=== PATIENT | female | born 1980 | race African-American/Black ===

== ENCOUNTER 2024-09-27 00:20 | Inpatient (IN) | payer OTHER ==
[~2024-09-27] VITALS: Ht 315 cm; Wt 47.2 kg
[2024-09-27 01:50] LABS: BASOPHILS % 0.2 % (0.0-2.0); DIFFERENTIAL COMMENT 0; EOSINOPHILS % 0.1 % (0.0-5.0); HEMATOCRIT. 47.1 % (36.0-48.0); HEMOGLOBIN. 13.5 g/dL (12.0-16.0); LYMPHOCYTES % 10.3 % (20.0-50.0); MEAN CORPUSCULAR HEMOGLOBIN 27.8 pg (28.0-32.0); MEAN CORPUSCULAR HGB CONC 28.6 g/dL (31.0-37.0); MEAN CORPUSCULAR VOLUME 97.1 fL (81.0-99.0); MEAN PLATELET VOLUME 9.1 fl (7.4-10.4); MONOCYTES % 8.9 % (2.0-8.0); NEUTROPHILS % 80.5 % (40.0-76.0); PLATELET 340 x1000/uL (130-400); RED BLOOD CELL COUNT 4.85 mill/uL (4.2-5.4); RED CELL DISTRIBUTION WIDTH 18.1 % (11.6-14.6); WHITE BLOOD COUNT 16.4 x1000/uL (4.5-11.0)
[2024-09-27] MEDS: SODIUM CHLORIDE 0.9% (SEPSIS BOLUS) IV ONE (01:52)
[2024-09-27] MEDS: PIPERACILLIN/TAZO 3.375G/50ML 50 ML IV ONE (01:57)
[2024-09-27 02:09] LABS: HCG SCREEN NEGATIVE
[2024-09-27 02:14] LABS: LACTIC ACID 3.3 mmol/L (0.4-2.0)
[2024-09-27] MEDS: VANCOMYCIN 1G PREMIX 200 ML IV ONE (02:30)
[2024-09-27 04:13] LABS: BG BASE EXCESS -24.5 mmol/L (-2.0-3.0); BG CARBOXYHEMOGLOBIN 0.5 % (0.5-1.5); BG DEOXYHEMOGLOBIN 2.3 % (0.0-5.0); BG FRACTION INSPIRED OXYGEN 40; BG HCO3 ACT 5.1 mmol/L (21.0-28.0); BG METHEMOGLOBIN 0.3 % (0.5-1.5); BG OXYGEN SATURATION 97.7 % (94.0-98.0); BG OXYHEMOGLOBIN 96.9 % (94.0-98.0); BG PCO2 20.8 mmHg (32.0-45.0); BG PH 7.008 (7.350-7.450); BG PO2 140.6 mmHg (83.0-108.0); BG SAMPLE SITE RIGHT RADIAL; BG TOTAL HEMOGLOBIN 12.9 g/dL (12.0-16.0); BG VENT MODE NASAL CANNULA
[2024-09-27 04:46] LABS: CHLORIDE 98 mEq/L (98-107); SODIUM 130 mEq/L (136-145)
[2024-09-27 04:47] LABS: CALCIUM 8.9 mg/dL (8.7-10.4)
[2024-09-27 04:52] LABS: CREATININE 1.8 mg/dL (0.6-1.0)
[2024-09-27 04:54] LABS: ALANINE AMINOTRANSFERASE 12 IU/L (10-49); ALBUMIN 4.5 g/dL (3.2-4.8); ASPARTATE AMINOTRANSFERASE 13 IU/L (<34); BILIRUBIN TOTAL 0.2 mg/dL (0.1-1.0); PROTEIN TOTAL 7.8 g/dL (6.0-8.3)
[2024-09-27 05:02] LABS: BILIRUBIN DIRECT < 0.1 mg/dL (<=3.0)
[2024-09-27 05:03] LABS: GLUCOSE 662 mg/dL (70-105)
[2024-09-27 05:04] LABS: CARBON DIOXIDE < 10 mEq/L (21-32)
[2024-09-27 05:09] LABS: UREA NITROGEN BLOOD 18 mg/dL (9-23)
[2024-09-27 05:11] LABS: TROPONIN I HIGH SENSITIVITY 5 ng/L (3.0-34)
[2024-09-27 05:36] LABS: BETA HYDROXYBUTYRATE 7.3 mMol/L (0.0-0.3)
[2024-09-27 05:41] LABS: CLARITY URINE CLEAR (CLEAR); COLOR URINE YELLOW (YELLOW); GLUCOSE URINE 3+ (NEGATIVE); KETONES URINE 4+ (NEGATIVE); LEUKOCYTE ESTERASE URINE NEGATIVE (NEGATIVE); NITRITE URINE NEGATIVE (NEGATIVE); OCCULT BLOOD URINE 1+ (NEGATIVE); PROTEIN URINE 1+ (NEGATIVE); SPECIFIC GRAVITY URINE 1.028 (1.005-1.030); UROBILINOGEN URINE 0.2 E.U./dL (0.2-1.0)
[2024-09-27] MEDS ORDERED: INSULIN REGULAR (DRIP) 100 UNITS in SODIUM CHLORIDE 0.9% 99 ML IV SCH (05:45)
[2024-09-27] MEDS ORDERED: BLOOD SUGAR DIAGNOSTIC STRIP TEST PRN ×2 (06:00→09:30)
[2024-09-27] MEDS ORDERED: MAGNESIUM 2 G PREMIX 50 ML IV PRN ×2 (06:00→08:30)
[2024-09-27] MEDS ORDERED: SODIUM PHOSPHATE 15 MMOL in SODIUM CHLORIDE 0.9% 245 ML IV PRN ×2 (06:00→09:30)
[2024-09-27] MEDS ORDERED: POTASSIUM CHLORIDE 40 MEQ in SODIUM CHLORIDE 0.9% 230 ML IV PRN ×2 (06:00→09:30)
[2024-09-27] MEDS ORDERED: DEXTROSE 50% WATER 50ML SYRINGE IV PRN ×2 (06:00→08:30)
[2024-09-27] MEDS ORDERED: DEXT 5%/LACTATED RINGERS 1,000 ML IV SCH (06:00)
[2024-09-27] MEDS ORDERED: KCL 20MEQ/100ML PREMIX 100 ML IV PRN ×2 (06:00→08:30)
[2024-09-27 06:28] LABS: WBC URINE 0-2 /hpf (0-2)
[2024-09-27] MEDS: BLOOD SUGAR DIAGNOSTIC STRIP TEST SCH ×3 (06:29→10:09)
[2024-09-27 06:30] LABS: RBC URINE NONE SEEN /hpf (0-2)
[2024-09-27 06:33] LABS: BACTERIA URINE 1+; SQUAMOUS EPITHELIAL CELL URINE FEW /lpf (RARE/1+); YEAST URINE 1+
[2024-09-27] MEDS: INSULIN REGULAR 100U/100ML PMX 100 ML IV SCH ×2 (06:34→13:09)
[2024-09-27] MEDS: LACTATED RINGERS 1,000 ML IV SCH (06:40)
[2024-09-27] MEDS: ACETAMINOPHEN 1000MG/100ML 100 ML IV ONE (06:40)
[2024-09-27] MEDS: ENOXAPARIN 120MG/0.8ML SYR SUBCUT ONE (06:41)
[2024-09-27] MEDS ORDERED: ONDANSETRON HCL 4MG/2ML INJ IV PRN (08:15)
[2024-09-27] MEDS ORDERED: ACETAMINOPHEN 325MG TABLET PO PRN (08:15)
[2024-09-27] MEDS ORDERED: DOCUSATE SODIUM 100MG CAPSULE PO PRN (08:15)
[2024-09-27] MEDS ORDERED: ENOXAPARIN 40MG/0.4ML SYR SUBCUT SCH (08:15)
[2024-09-27] MEDS ORDERED: MAGNESIUM/ALUMINUM HYDROXIDE/SIMETHICONE 30ML UDC PO PRN (08:15)
[2024-09-27] MEDS ORDERED: IPRATROPIUM/ALBUTEROL 0.5-3(2.5)MG/3ML NEB HHN PRN (08:15)
[2024-09-27] MEDS ORDERED: PIPERACILLIN/TAZOBACTAM 3.375 G in DEXTROSE 5% WATER 50 ML IV SCH (08:15)
[2024-09-27] MEDS ORDERED: SODIUM CHLORIDE 0.45% 1,000 ML IV SCH (08:30)
[2024-09-27 09:09] LABS: CHLORIDE 104 mEq/L (98-107); POTASSIUM 4.6 mEq/L (3.5-5.1); SODIUM 134 mEq/L (136-145)
[2024-09-27 09:11] LABS: CALCIUM 9.1 mg/dL (8.7-10.4); D-DIMER 2.32 mg/L FEU (<0.50); PROTHROMBIN TIME 11.6 sec (9.6-11.0)
[2024-09-27 09:15] LABS: CREATININE 1.5 mg/dL (0.6-1.0)
[2024-09-27 09:16] LABS: UREA NITROGEN BLOOD 18 mg/dL (9-23)
[2024-09-27 09:18] LABS: PHOSPHORUS 2.6 mg/dL (2.5-4.9)
[2024-09-27 09:22] LABS: CARBON DIOXIDE < 10 mEq/L (21-32)
[2024-09-27 09:23] LABS: GLUCOSE 460 mg/dL (70-105)
[2024-09-27] MEDS: DEXT 5%/0.9% NACL 1,000 ML IV SCH (09:30)
[2024-09-27] MEDS: SODIUM CHLORIDE 0.9% 1,000 ML IV SCH (09:32)
[2024-09-27] MEDS ORDERED: VANCOMYCIN 1G PREMIX 200 ML IV SCH (10:00)
[2024-09-27] MEDS: PIPERACILLIN/TAZO 3.375G/50ML IV SCH (11:41)
[2024-09-27 11:57] LABS: BG BASE EXCESS -16.3 mmol/L (-2.0-3.0); BG CARBOXYHEMOGLOBIN 0.6 % (0.5-1.5); BG DEOXYHEMOGLOBIN 2.8 % (0.0-5.0); BG FRACTION INSPIRED OXYGEN 32; BG METHEMOGLOBIN 0.3 % (0.5-1.5); BG OXYGEN SATURATION 97.2 % (94.0-98.0); BG OXYHEMOGLOBIN 96.3 % (94.0-98.0); BG PCO2 21.4 mmHg (32.0-45.0); BG PH 7.242 (7.350-7.450); BG PO2 94.1 mmHg (83.0-108.0); BG SAMPLE SITE RIGHT RADIAL; BG VENT MODE NASAL CANNULA
[2024-09-27 15:43] LABS: CHLORIDE 108 mEq/L (98-107); SODIUM 136 mEq/L (136-145)
[2024-09-27 15:45] LABS: CARBON DIOXIDE 14 mEq/L (21-32)
[2024-09-27 16:08] LABS: PHOSPHORUS 0.7 mg/dL (2.5-4.9)
[2024-09-27 17:36] LABS: CHLORIDE 110 mEq/L (98-107); POTASSIUM 4.1 mEq/L (3.5-5.1); SODIUM 137 mEq/L (136-145)
[2024-09-27 17:37] LABS: CARBON DIOXIDE 13 mEq/L (21-32)
[2024-09-27 17:55] LABS: PHOSPHORUS 0.9 mg/dL (2.5-4.9)
[2024-09-27] MEDS: POTASSIUM PHOSPHATE 30 MMOL in SODIUM CHLORIDE 0.9% 500 ML IV NR (19:00)
[2024-09-27] MEDS: VANCOMYCIN 1G PREMIX 200 ML IV SCH (20:52)
[2024-09-28 02:07] LABS: CHLORIDE 106 mEq/L (98-107); POTASSIUM 3.4 mEq/L (3.5-5.1); SODIUM 133 mEq/L (136-145)
[2024-09-28 02:08] LABS: CALCIUM 8.1 mg/dL (8.7-10.4); CARBON DIOXIDE 16 mEq/L (21-32)
[2024-09-28 02:13] LABS: CREATININE 1.1 mg/dL (0.6-1.0); GLUCOSE 374 mg/dL (70-105)
[2024-09-28 02:14] LABS: UREA NITROGEN BLOOD 8 mg/dL (9-23)
[2024-09-28] MEDS ORDERED: DEXTROSE 50% WATER 50ML SYRINGE IV PRN (03:45)
[2024-09-28] MEDS: ENOXAPARIN 30MG/0.3ML SYR SUBCUT SCH (04:46)
[2024-09-28] MEDS: IPRATROPIUM BROMIDE (0.02%) 0.5MG/2.5ML NEB HHN SCH (04:47)
[2024-09-28] MEDS: INSULIN GLARGINE 100 UNITS/ML SUBCUT SCH ×2 (05:13→23:10)
[2024-09-28 05:15] VITALS: PULSE 86; RESP 18; O2SAT 98
[2024-09-28] MEDS: PIPERACILLIN/TAZO 3.375G/50ML IV SCH (06:38)
[2024-09-28] MEDS: INSULIN LISPRO 100 UNITS/ML SUBCUT SCH (08:20)
[2024-09-28] MEDS: BLOOD SUGAR DIAGNOSTIC STRIP TEST SCH (09:00)
[2024-09-28 10:17] LABS: BG CARBOXYHEMOGLOBIN 0.9 % (0.5-1.5); BG DEOXYHEMOGLOBIN 4.2 % (0.0-5.0); BG FRACTION INSPIRED OXYGEN 21; BG HCO3 ACT 20.8 mmol/L (21.0-28.0); BG METHEMOGLOBIN 0.3 % (0.5-1.5); BG OXYGEN SATURATION 95.7 % (94.0-98.0); BG OXYHEMOGLOBIN 94.6 % (94.0-98.0); BG PCO2 33.5 mmHg (32.0-45.0); BG PO2 75.3 mmHg (83.0-108.0); BG SAMPLE SITE LEFT RADIAL; BG TOTAL HEMOGLOBIN 13.7 g/dL (12.0-16.0); BG VENT MODE ROOM AIR
[2024-09-28 11:29] LABS: BASOPHILS % 0.2 % (0.0-2.0); EOSINOPHILS % 0.3 % (0.0-5.0); HEMATOCRIT. 39.6 % (36.0-48.0); HEMOGLOBIN. 12.6 g/dL (12.0-16.0); MEAN CORPUSCULAR HEMOGLOBIN 27.3 pg (28.0-32.0); MEAN CORPUSCULAR HGB CONC 31.8 g/dL (31.0-37.0); MEAN CORPUSCULAR VOLUME 85.7 fL (81.0-99.0); MEAN PLATELET VOLUME 7.9 fl (7.4-10.4); MONOCYTES % 10.4 % (2.0-8.0); NEUTROPHILS % 73.1 % (40.0-76.0); PLATELET 264 x1000/uL (130-400); RED BLOOD CELL COUNT 4.62 mill/uL (4.2-5.4); RED CELL DISTRIBUTION WIDTH 17.4 % (11.6-14.6); WHITE BLOOD COUNT 8.7 x1000/uL (4.5-11.0)
[2024-09-28 11:35] LABS: CARBON DIOXIDE 21 mEq/L (21-32); CHLORIDE 107 mEq/L (98-107); POTASSIUM 3.4 mEq/L (3.5-5.1); SODIUM 138 mEq/L (136-145)
[2024-09-28 11:36] LABS: CALCIUM 8.6 mg/dL (8.7-10.4)
[2024-09-28 11:40] LABS: CREATININE 0.9 mg/dL (0.6-1.0); GLUCOSE 171 mg/dL (70-105)
[2024-09-28 11:41] LABS: ALANINE AMINOTRANSFERASE 10 IU/L (10-49); ALBUMIN 3.8 g/dL (3.2-4.8); ASPARTATE AMINOTRANSFERASE 10 IU/L (<34); BILIRUBIN TOTAL 0.3 mg/dL (0.1-1.0); PROTEIN TOTAL 6.9 g/dL (6.0-8.3); TRIGLYCERIDE 165 mg/dL (0-150); UREA NITROGEN BLOOD 7 mg/dL (9-23)
[2024-09-28 11:42] LABS: LDL CHOLESTEROL 82 mg/dL (5-100)
[2024-09-28 11:43] LABS: CHOLESTEROL 151 mg/dL (<200); HDL CHOLESTEROL 23 mg/dL (>65); PHOSPHORUS 1.2 mg/dL (2.5-4.9)
[2024-09-28 11:45] LABS: T4 FREE 1.45 ng/dL (0.89-1.76); THYROID STIMULATING HORMONE 1.03 uIU/mL (0.55-4.78)
[2024-09-28] MEDS: KCL 20MEQ/100ML PREMIX 100 ML IV NR (12:15)
[2024-09-28] MEDS: SODIUM CHLORIDE 0.9% 1,000 ML IV SCH (12:15)
[2024-09-28 12:27] LABS: BILIRUBIN DIRECT < 0.1 mg/dL (<=3.0)
[2024-09-28 14:00] VITALS: BP 131/89; PULSE 102; RESP 19; TEMP 36.7; O2SAT 97
[2024-09-28 16:00] VITALS: BP 140/82; PULSE 105; RESP 18; TEMP 36.4; O2SAT 97
[2024-09-28 16:31] VITALS: BP 131/89; PULSE 78; RESP 19; TEMP 36.8
[2024-09-28 20:00] VITALS: BP 146/87; PULSE 109; RESP 18; TEMP 36.2; O2SAT 97
[2024-09-28 20:39] LABS: CHLORIDE 105 mEq/L (98-107); POTASSIUM 3.4 mEq/L (3.5-5.1); SODIUM 134 mEq/L (136-145)
[2024-09-28 20:40] LABS: CARBON DIOXIDE 19 mEq/L (21-32)
[2024-09-28 20:41] LABS: CALCIUM 8.8 mg/dL (8.7-10.4)
[2024-09-28 20:45] LABS: GLUCOSE 314 mg/dL (70-105); UREA NITROGEN BLOOD 6 mg/dL (9-23)
[2024-09-28] MEDS: ACETAMINOPHEN 325MG TABLET PO PRN (21:09)
[2024-09-29] VITALS (8 sets, daily range): BP systolic 107–157; BP diastolic 48–85; PULSE 73–99; RESP 16–20; TEMP 36.4–37; O2SAT 89–98
[2024-09-29] MEDS ORDERED: IOHEXOL-350 100 ML BOTTLE ONE (00:25)
[2024-09-29 06:15] LABS: CHLORIDE 105 mEq/L (98-107); POTASSIUM 3.3 mEq/L (3.5-5.1); SODIUM 138 mEq/L (136-145)
[2024-09-29 06:16] LABS: CARBON DIOXIDE 22 mEq/L (21-32)
[2024-09-29 06:17] LABS: CALCIUM 8.8 mg/dL (8.7-10.4)
[2024-09-29] MEDS: VANCOMYCIN 1G PREMIX 200 ML IV SCH (06:20)
[2024-09-29 06:21] LABS: CREATININE 0.8 mg/dL (0.6-1.0); GLUCOSE 371 mg/dL (70-105)
[2024-09-29 06:22] LABS: UREA NITROGEN BLOOD 6 mg/dL (9-23)
[2024-09-29] MEDS: POTASSIUM PHOSPHATE 30 MMOL in SODIUM CHLORIDE 0.9% 490 ML IV NR (06:22)
[2024-09-29 06:24] LABS: PHOSPHORUS 1.8 mg/dL (2.5-4.9)
[2024-09-29 07:19] LABS: BASOPHILS % 0.2 % (0.0-2.0); EOSINOPHILS % 0.3 % (0.0-5.0); HEMATOCRIT. 34.7 % (36.0-48.0); HEMOGLOBIN. 11.5 g/dL (12.0-16.0); LYMPHOCYTES % 23.6 % (20.0-50.0); MEAN CORPUSCULAR HEMOGLOBIN 28.3 pg (28.0-32.0); MEAN CORPUSCULAR HGB CONC 33.2 g/dL (31.0-37.0); MEAN CORPUSCULAR VOLUME 85.1 fL (81.0-99.0); MEAN PLATELET VOLUME 8.1 fl (7.4-10.4); MONOCYTES % 7.2 % (2.0-8.0); NEUTROPHILS % 68.7 % (40.0-76.0); PLATELET 284 x1000/uL (130-400); RED BLOOD CELL COUNT 4.08 mill/uL (4.2-5.4); RED CELL DISTRIBUTION WIDTH 16.8 % (11.6-14.6); WHITE BLOOD COUNT 8.9 x1000/uL (4.5-11.0)
[2024-09-29] MEDS ORDERED: POTASSIUM PHOSPHATE 20 MMOL in DEXT 5% WATER 243.3333 ML IV ONE (07:30)
[2024-09-29] MEDS: GUAIFENESIN 200MG/10ML SUGAR FREE UDC PO PRN (08:03)
[2024-09-29] MEDS: ENOXAPARIN 30MG/0.3ML SYR SUBCUT SCH (09:48)
[2024-09-29] MEDS: MAGNESIUM 2 G PREMIX 50 ML IV NR (09:49)
[2024-09-29] MEDS: INSULIN GLARGINE 100 UNITS/ML SUBCUT SCH (09:49)
[2024-09-29] MEDS: INSULIN LISPRO 100 UNITS/ML SUBCUT SCH (17:53)
[2024-09-29] MEDS: POTASSIUM PHOSPHATE IV SCH (18:05)
[2024-09-29] MEDS: DEXT 5% IV SCH (18:05)
[2024-09-29] MEDS: WATER IV SCH (18:05)
[2024-09-29] MEDS: METOCLOPRAMIDE HCL 5MG TABLET PO SCH (21:25)
[2024-09-30] VITALS (7 sets, daily range): BP systolic 113–176; BP diastolic 48–96; PULSE 80–85; RESP 16–18; TEMP 36.4–37.2; O2SAT 91–100
[2024-09-30] MEDS: CLONIDINE 0.1MG TABLET PO PRN (09:48)
[2024-09-30] MEDS ORDERED: INSU500V SQ (09:58)
[2024-09-30] MEDS ORDERED: PANT40TA51 PO (09:58)
[2024-09-30] MEDS ORDERED: FENO145T25 PO (09:58)
[2024-09-30] MEDS ORDERED: ATOR40TA70 MT (09:58)
[2024-09-30] MEDS ORDERED: METO-293 MT (09:58)
[2024-09-30] MEDS ORDERED: LOSA25TA26 MT (09:58)
[2024-09-30 10:16] LABS: BASOPHILS % 0.3 % (0.0-2.0); EOSINOPHILS % 0.2 % (0.0-5.0); HEMATOCRIT. 36.6 % (36.0-48.0); HEMOGLOBIN. 11.9 g/dL (12.0-16.0); LYMPHOCYTES % 29.7 % (20.0-50.0); MEAN CORPUSCULAR HEMOGLOBIN 27.3 pg (28.0-32.0); MEAN CORPUSCULAR HGB CONC 32.5 g/dL (31.0-37.0); MEAN CORPUSCULAR VOLUME 84.1 fL (81.0-99.0); MEAN PLATELET VOLUME 7.4 fl (7.4-10.4); MONOCYTES % 6.5 % (2.0-8.0); NEUTROPHILS % 63.3 % (40.0-76.0); PLATELET 310 x1000/uL (130-400); RED BLOOD CELL COUNT 4.35 mill/uL (4.2-5.4); RED CELL DISTRIBUTION WIDTH 16.8 % (11.6-14.6); WHITE BLOOD COUNT 8.6 x1000/uL (4.5-11.0)
[2024-09-30 10:24] LABS: CHLORIDE 102 mEq/L (98-107); POTASSIUM 3.4 mEq/L (3.5-5.1); SODIUM 137 mEq/L (136-145)
[2024-09-30 10:25] LABS: CALCIUM 9.1 mg/dL (8.7-10.4); CARBON DIOXIDE 27 mEq/L (21-32)
[2024-09-30 10:30] LABS: CREATININE 0.7 mg/dL (0.6-1.0); GLUCOSE 328 mg/dL (70-105); UREA NITROGEN BLOOD 8 mg/dL (9-23)
[2024-09-30 10:32] LABS: PHOSPHORUS 3.7 mg/dL (2.5-4.9)
[2024-09-30] MEDS ORDERED: AMOX1TAB15 PO (10:38)
[2024-09-30] MEDS ORDERED: AZIT500T8 MT (10:38)
[2024-09-30] MEDS ORDERED: LANTUSUD SUBCUT (10:38)
[2024-09-30] MEDS: POTASSIUM CHLORIDE 20MEQ/PACKET PO NR (10:51)
== END 2024-09-30 16:55 | disposition home or self-care (01) | DRG 871 ==
LOC: ER 00:20 → EDBEDREQ 05:39 → EDBEDREQTM 05:39 → 5WST 09-28 05:05 → EDBEDREQSVC 09-28 11:51 → 5WST 09-28 13:48
PROVIDERS: ADMIT Internal Medicine; ATTEND Internal Medicine
DX: A41.89 Other specified sepsis (principal); E11.10 Type 2 diabetes mellitus with ketoacidosis without coma; J96.01 Acute respiratory failure with hypoxia; J18.9 Pneumonia, unspecified organism; N17.9 Acute kidney failure, unspecified; E87.1 Hypo-osmolality and hyponatremia; E87.4 Mixed disorder of acid-base balance; Z68.1 Body mass index [BMI] 19.9 or less, adult; E66.9 Obesity, unspecified; F41.9 Anxiety disorder, unspecified; K21.9 Gastro-esophageal reflux disease without esophagitis; E83.42 Hypomagnesemia; E87.6 Hypokalemia; E83.39 Other disorders of phosphorus metabolism; I51.7 Cardiomegaly; K31.84 Gastroparesis; K76.0 Fatty (change of) liver, not elsewhere classified; Z68.30 Body mass index [BMI] 30.0-30.9, adult; Z79.4 Long term (current) use of insulin; Z91.148 Patient's other noncompliance with medication regimen for other reason
CPT/HCPCS: 36415; 36600; 71045; 71275; 80048; 80051; 80061; 80076; 80202; 81003; 82010; 82375; 82805; 82962; 83036; 83605; 83735; 83880; 83930; 84100; 84145; 84439; 84443; 84484; 84703; 85025; 85379; 87077; 93005; 93970; 94070; 94640; 94664; 99291; A4606; J1650; J1815; J2543; J3370; J3475; J3480; J3490; J7030; J7040; J7050; J7060; J7120; J8597; Q9967; J0131